=== PATIENT | male | born 2000 | race Caucasian/White ===

== ENCOUNTER 2021-06-26 19:46 | Emergency (ER) | payer SELFPAY ==
[~2021-06-26] VITALS: Ht 180.3 cm; Wt 73.9 kg
[2021-06-26 20:34] VITALS: BP_SYST 116
--- NOTE | 2021-06-26 20:34 | NUR ---
Patient to ER bed 4 to gown for evaluation. Side rails up.
--- NOTE | 2021-06-26 20:38 | NUR ---
ER Dr. Suresh at bedside examining patient.
--- NOTE | 2021-06-26 20:38 | NUR ---
Patient BIB by family from home. C/O Headache x today. Patient reported, had headache since 1830 PM today, nausea, no vomitting , Hx Migraine, A/O,X4, left headache and left eye ball, pain rate 7/10.
[2021-06-26 20:40] LABS: BASOPHILS # (AUTO) 0.1 K/uL (0.0-0.2); BASOPHILS % (AUTO) 1.1 % (0.0-2.0); EOSINOPHILS # (AUTO) 0.2 K/uL (0.0-0.4); EOSINOPHILS % (AUTO) 4.5 % (0.0-4.0); HEMATOCRIT 42.4 % (36-54); HEMOGLOBIN 14.8 g/dL (14.0-18.0); LYMPHOCYTES # (AUTO) 1.2 K/uL (1.0-5.5); LYMPHOCYTES % (AUTO) 24.7 % (20.5-51.5); MEAN CORPUSCULAR HEMOGLOBIN 31 pg (27-31); MEAN CORPUSCULAR HGB CONC 35 % (32-36); MEAN CORPUSCULAR VOLUME 89 fL (79.0-98.0); MONOCYTES # (AUTO) 0.2 K/uL (0.0-1.0); MONOCYTES % (AUTO) 4.6 % (1.7-9.3); NEUTROPHILS # (AUTO) 3.2 K/uL (1.8-7.7); NEUTROPHILS % (AUTO) 65.1 % (40.0-70.0); PLATELET COUNT (AUTO) 230 K/uL (130-430); RED BLOOD CELL COUNT(AUTO) 4.77 MIL/uL (4.2-6.2); RED CELL DISTRIBUTION WIDTH 13.2 % (9.0-15.0); WHITE BLOOD COUNT (AUTO) 4.9 K/uL (4.8-10.8)
[2021-06-26] MEDS ORDERED: PROCHLORPERAZINE EDISYLATE 10 MG/2 ML VIAL IVP ONE (20:45)
[2021-06-26] MEDS ORDERED: KETOROLAC TROMETHAMINE 30 MG VIAL IVP ONE (20:45)
--- NOTE | 2021-06-26 21:09 | NUR ---
Returned from radiology, back to [facility].
[2021-06-26 21:22] LABS: ANION GAP 8 (5-15); CALCIUM 9.1 mg/dL (8.4-11.0); CHLORIDE 100 mmol/L (98-107); CREATININE 1.04 mg/dL (0.55-1.30); GLUCOSE 91 mg/dL (70-99); POTASSIUM 3.7 mmol/L (3.5-5.1); SODIUM SERUM 137 mmol/L (136-145); UREA NITROGEN, BLOOD 14 mg/dL (8-21)
[2021-06-26 21:28] LABS: ALANINE AMINOTRANSFERASE 23 U/L (12-78); ALBUMIN 4.5 g/dL (3.4-4.8); ASPARTATE AMINOTRANSFERASE 18 U/L (10-37); TOTAL BILIRUBIN 0.2 mg/dL (0.0-1.0)
[2021-06-26 21:34] LABS: PROTHROMBIN TIME 10.7 SECS (9.5-12.5)
[2021-06-26 21:36] LABS: ALCOHOL, BLOOD < 3 mg/dL (<10); GFR AFRICAN AMERICAN 116 mL/min (>90)
[2021-06-26] MEDS ORDERED: IMI50 PO (21:44)
[2021-06-26 22:04] VITALS: BP_SYST 121
--- NOTE | 2021-06-26 22:04 | NUR ---
Patient given written and verbal discharge instructions and verbalizes understanding. ER MD discussed with patient the results and treatment provided. Patient in stable condition. ID arm band removed. IV catheter removed intact and dressing applied, no active bleeding. Rx of Immitrex given. Patient educated on pain management and to follow up with PMD. Pain Scale 1/10. Opportunity for questions provided and answered. Medication side effect fact sheet provided.
== END 2021-06-26 22:04 | disposition home or self-care (01) ==
LOC: SED 19:46
DX: G43.909 Migraine, unspecified, not intractable, without status migrainosus (principal); Z79.899 Other long term (current) drug therapy
CPT/HCPCS: 36415; 70450; 76376; 80053; 85025; 85610; 85730; 96374; 96375; 99284; G0482; J0780; J1885

== ENCOUNTER 2023-01-30 16:30 | Emergency (ER) | payer BC ==
[~2023-01-30] VITALS: Ht 182.9 cm; Wt 81.6 kg
[~2023-01-30 16:30] MED LIST: IMI50 PO
[2023-01-30 16:35] VITALS: BP_SYST 139
[2023-01-30] MEDS ORDERED: METOCLOPRAMIDE HCL 10 MG/2 ML VIAL IVP ONE (17:45)
[2023-01-30] MEDS ORDERED: KETOROLAC TROMETHAMINE 30 MG VIAL IVP ONE (17:45)
[2023-01-30] MEDS ORDERED: NACL 0.9% 1,000 ML IV ONE (18:00)
[2023-01-30] MEDS ORDERED: NAPR-690 PO (19:05)
[2023-01-30 19:25] VITALS: BP_SYST 139
== END 2023-01-30 19:25 | disposition home or self-care (01) ==
LOC: SED 16:30
DX: G43.909 Migraine, unspecified, not intractable, without status migrainosus (principal); R11.0 Nausea; H53.149 Visual discomfort, unspecified; Z79.899 Other long term (current) drug therapy
CPT/HCPCS: 99284; 96374; 96361; 96375; J1885; J2765; J7030